=== PATIENT | female | born 1990 | race Caucasian/White ===

== ENCOUNTER 2017-05-23 18:12 | Emergency (ER) | payer MEDICAID ==
[~2017-05-23] VITALS: Ht 157.5 cm; Wt 69.0 kg
[2017-05-23] MEDS ORDERED: FAMO40TA7 PO (18:20)
[2017-05-23 20:08] LABS: CLARITY URINE CLOUDY (CLEAR); COLOR URINE ORANGE (YELLOW); GLUCOSE URINE NEGATIVE (NEGATIVE); KETONES URINE NEGATIVE (NEGATIVE); LEUKOCYTE ESTERASE URINE 3+ (NEGATIVE); NITRITE URINE NEGATIVE (NEGATIVE); OCCULT BLOOD URINE 3+ (NEGATIVE); PROTEIN URINE NEGATIVE (NEGATIVE); SPECIFIC GRAVITY URINE 1.016 (1.005-1.030)
[2017-05-23] MEDS ORDERED: SODIUM CHLORIDE 0.9% 1,000 ML IV ONE (21:04)
[2017-05-23] MEDS ORDERED: FAMOTIDINE 20MG/2ML VIAL IV STA (21:04)
[2017-05-23] MEDS ORDERED: KETOROLAC 30MG/ML VIAL IV STA (21:04)
[2017-05-23] MEDS ORDERED: ONDANSETRON HCL 4MG/2ML VIAL IV STA (21:04)
[2017-05-23] MEDS ORDERED: CEFTRIAXONE SODIUM 1 G/VIAL IV ONE (21:15)
[2017-05-23 21:34] LABS: BASOPHILS % 0.4 % (0.0-2.0); EOSINOPHILS % 1.3 % (0.0-5.0); HEMATOCRIT. 37.9 % (36.0-48.0); LYMPHOCYTES % 43.6 % (20.0-50.0); MEAN CORPUSCULAR HEMOGLOBIN 33.1 pg (28.0-32.0); MEAN CORPUSCULAR VOLUME 96.2 fL (81.0-99.0); MEAN PLATELET VOLUME 9.1 fl (7.4-10.4); MONOCYTES % 8.7 % (2.0-8.0); PLATELET 231 x1000/uL (130-400); RED BLOOD CELL COUNT 3.94 mill/uL (4.2-5.4); RED CELL DISTRIBUTION WIDTH 13.5 % (11.6-14.6)
[2017-05-23 21:40] LABS: CHLORIDE 110 mEq/L (98-107)
[2017-05-23] MEDS ORDERED: CEFTRIAXONE 1 G PREMIX 50 ML IV ONE (21:45)
[2017-05-23 21:47] LABS: CARBON DIOXIDE 29 mEq/L (21-32)
[2017-05-23 23:21] VITALS: BP 108/64
== END 2017-05-23 23:50 | disposition home or self-care (01) ==
LOC: ER 19:02
DX: K29.70 Gastritis, unspecified, without bleeding (principal); N39.0 Urinary tract infection, site not specified
CPT/HCPCS: 36415; 80053; 81001; 81025; 83690; 85025; 96365; 96375; 99284; J0696; J1885; J2405; J3490; J7030; Z7610; 99285